=== PATIENT | male | born 1940 | race Hispanic/Latino ===

== ENCOUNTER 2018-01-13 18:49 | Emergency (ER) | payer OTHER ==
[~2018-01-13 18:49] MED LIST: ASPI-1197 PO; CHOL200074 PO; FERR325T22 PO; GABA-531 PO; GLIM4TAB3 PO; LEVO150T11 PO; LOSA25TA16 PO; METF-446 PO; SIMV40TA59 PO; TRAM50TA4 PO
[2018-01-13] MEDS ORDERED: DiphenhydrAMINE HCL 50 MG/ML VIAL ONE (18:52)
[2018-01-13] MEDS ORDERED: METHYLPREDNISOLONE SOD SUCC 125MG/2ML VIAL ONE (18:52)
[2018-01-13] MEDS ORDERED: FAMOTIDINE/PF 20 MG/2 ML VIAL IV ONE (18:52)
[2018-01-13] MEDS ORDERED: ONDANSETRON HCL 4 MG/2 ML VIAL ONE ×3 (19:09→21:45)
[2018-01-13] MEDS ORDERED: HYDROMORPHONE 1 MG/1 ML AMP ONE ×3 (19:10→19:39)
[2018-01-13 19:15] LABS: BASOPHILS % (AUTO) 0.4 % (0.0-5.0); CREATININE 1.9 mg/dL (0.5-1.5); EOSINOPHILS % (AUTO) 0.8 % (0.0-8.0); HEMATOCRIT 38.4 % (42-54); LYMPHOCYTES % (AUTO) 37.1 % (21.0-51.0); MEAN CORPUSCULAR HEMOGLOBIN 29.4 pg (27.0-33.0); MEAN CORPUSCULAR VOLUME 94.9 fL (79-99); MONOCYTES % (AUTO) 3.3 % (3.0-13.0); NEUTROPHILS % (AUTO) 58.4 % (40.0-77.0); NUCLEATED RED BLOOD CELLS 0.1 % (0.0-0.19); PLATELET COUNT (AUTO) 223 K/uL (130-400); POTASSIUM 3.6 mmol/L (3.5-5.1); RED BLOOD CELL COUNT(AUTO) 4.05 MIL/uL (4.50-6.20); RED CELL DISTRIBUTION WIDTH 14.6 % (11.0-15.5)
[2018-01-13 19:39] LABS: ALBUMIN 3.4 g/dL (3.5-5.0); BILIRUBIN,TOTAL 0.5 mg/dL (0.2-1.0); TOTAL PROTEIN, SERUM 7.8 g/dL (6.0-8.3)
[2018-01-13] MEDS ORDERED: NALOXONE HCL 0.4 MG/1 ML ML ONE (19:46)
[2018-01-13] MEDS ORDERED: SODIUM BICARB 50MEQ 50ML VIAL ONE ×2 (19:46→19:55)
[2018-01-13 19:48] LABS: INR > 7.00 (0.85-1.15); PARTIAL THROMBOPLASTIN TIME 104.2 SEC (26.3-35.5); PROTHROMBIN TIME > 63.0 SEC (9.6-11.6)
[2018-01-13 19:54] LABS: ABG BASE EXCESS -16.1 mmol/L (-2.0-3.0); ABG HCO3 11.4 mmol/L (21.0-28.0); ABG OXYGEN SATURATION 90.7 % (95.0-99.0); ABG PCO2 32 mmHg (35-48)
[2018-01-13] MEDS ORDERED: SODIUM CHLORIDE 0.9% 100 ML IV ONE (20:01)
[2018-01-13] MEDS ORDERED: PROMETHAZINE HCL 25 MG/ML 1ML AMPULE IM ONE (22:16)
[2018-01-13] MEDS ORDERED: SODIUM CHLORIDE 0.9% 50 ML IV ONE (22:18)
[2018-01-13 23:29] LABS: ABG BASE EXCESS -13.7 mmol/L (-2.0-3.0); ABG HCO3 13.7 mmol/L (21.0-28.0); ABG OXYGEN SATURATION 93.9 % (95.0-99.0); ABG PCO2 37 mmHg (35-48)
[2018-01-14] MEDS ORDERED: SODIUM BICARB 50MEQ 50ML VIAL ONE (00:11)
[2018-01-14] MEDS ORDERED: SODIUM CHLORIDE 0.9% 1000ML 1,000 ML IV ONE (00:11)
[2018-01-14 00:32] LABS: ALBUMIN 2.9 g/dL (3.5-5.0); BILIRUBIN,TOTAL 1.1 mg/dL (0.2-1.0); POTASSIUM 4.1 mmol/L (3.5-5.1); TOTAL PROTEIN, SERUM 6.9 g/dL (6.0-8.3)
[2018-01-14 00:33] LABS: INR 1.3 (0.85-1.15); PARTIAL THROMBOPLASTIN TIME 78.7 SEC (26.3-35.5); PROTHROMBIN TIME 13.6 SEC (9.6-11.6)
[2018-01-14] MEDS ORDERED: INSULIN HUMULIN R 100 UNIT/ML 3ML ONE (00:38)
[2018-01-14] MEDS ORDERED: DiphenhydrAMINE HCL 50 MG/ML VIAL ONE (00:49)
[2018-01-14] MEDS ORDERED: FAMOTIDINE/PF 20 MG/2 ML VIAL IV ONE (00:50)
[2018-01-14] MEDS ORDERED: IPRATROPIUM/ALBUTEROL SULFATE 3 ML SOLUTION IH ONE (01:02)
== END 2018-01-14 05:03 | disposition home or self-care (01) ==
LOC: EDH 18:49
DX: T63.441A Toxic effect of venom of bees, accidental (unintentional), initial encounter (principal); N17.9 Acute kidney failure, unspecified; E87.2 Acidosis; D68.9 Coagulation defect, unspecified; R73.9 Hyperglycemia, unspecified; I10 Essential (primary) hypertension; Z95.1 Presence of aortocoronary bypass graft; Y92.89 Other specified places as the place of occurrence of the external cause
CPT/HCPCS: 36415 ×2; 36600 ×2; 51702; 71045; 80053 ×2; 82435; 82550; 82803 ×2; 82947; 82948; 83605; 83874; 83930; 83935; 84132; 84295; 84484; 85018; 85025; 85370; 85384; 85610 ×2; 85730 ×2; 93005; 94640; 96365; 96366; 96374; 96375 ×2; 99291; J1170 ×3; J1200 ×2; J1815; J2310; J2405 ×3; J2550; J2930; J3490 ×5; J7030; 96361

== ENCOUNTER → 2018-10-27 | Outpatient (CLI) | payer OTHER, MEDICARE ==
[~2018-10-27] MED LIST changes: -LOSA25TA16 PO; +LOSA25TA41 PO
== END | disposition home or self-care (01) ==
LOC: RAH 14:36
PROVIDERS: ATTEND Internal Medicine
DX: I82.409 Acute embolism and thrombosis of unspecified deep veins of unspecified lower extremity (principal); R60.0 Localized edema
CPT/HCPCS: 93971

== ENCOUNTER 2023-01-20 09:36 | Emergency (ER) | payer MEDICARE, OTHER ==
[~2023-01-20] VITALS: Ht 152.4 cm; Wt 83.0 kg
[~2023-01-20 09:36] MED LIST changes: +CEPH500B PO; -GLIM4TAB3 PO; +GLIM4TAB36 PO
[2023-01-20 10:15] LABS: GLUCOSE POC COMMENT Stat Lab Glu Request
[2023-01-20 10:23] LABS: BASOPHILS # (AUTO) 0.04 K/uL (0.00-0.20); BASOPHILS % (AUTO) 0.3 % (0.0-5.0); EOSINOPHILS # (AUTO) 0.01 K/uL (0.00-0.70); EOSINOPHILS % (AUTO) 0.1 % (0.0-8.0); HEMATOCRIT 29.8 % (42-54); IMMATURE GRANULOCYTE ABSOLUTE 0.07 K/uL (0-1); LYMPHOCYTES # (AUTO) 0.7 K/uL (1.0-4.8); LYMPHOCYTES % (AUTO) 5.2 % (21.0-51.0); MEAN CORPUSCULAR HEMOGLOBIN 29.8 pg (27.0-33.0); MEAN CORPUSCULAR HGB CONC 31.2 g/dL (32.0-36.0); MEAN CORPUSCULAR VOLUME 95.5 fL (79-99); MONOCYTES # (AUTO) 0.8 K/uL (0.1-1.0); MONOCYTES % (AUTO) 6.1 % (3.0-13.0); NEUTROPHILS # (AUTO) 11.8 K/uL (1.8-7.7); NEUTROPHILS % (AUTO) 87.8 % (40.0-77.0); PLATELET COUNT (AUTO) 183 K/uL (130-400); RED BLOOD CELL COUNT(AUTO) 3.12 MIL/uL (4.50-6.20); RED CELL DISTRIBUTION WIDTH 14.2 % (11.0-15.5); WHITE BLOOD COUNT (AUTO) 13.5 K/uL (4.8-10.8)
[2023-01-20 10:42] LABS: B-TYPE NATRIURETIC PEPTIDE 921 pg/mL (0-100)
[2023-01-20 10:43] LABS: ALBUMIN 2.9 g/dL (3.5-5.0); BILIRUBIN,TOTAL 0.6 mg/dL (0.2-1.0); CREATININE 3.9 mg/dL (0.5-1.5); POTASSIUM 4.5 mmol/L (3.5-5.1); TOTAL PROTEIN, SERUM 7.4 g/dL (6.0-8.3)
[2023-01-20] MEDS ORDERED: ACETAMINOPHEN 500 MG TABLET ONE (13:45)
[2023-01-20] MEDS ORDERED: ACETAMINOPHEN 500 MG TABLET PO ONE (14:00)
[2023-01-20] MEDS ORDERED: INSULIN HUMULIN R 100 UNIT/ML 3ML IV ONE (14:00)
[2023-01-20 15:42] VITALS: BP 166/85; PULSE 86; RESP 18; O2SAT 96
[2023-01-20] MEDS ORDERED: ACET160S2 PO (16:07)
== END 2023-01-20 16:15 | disposition home or self-care (01) ==
LOC: EDH 09:36
DX: S39.011A Strain of muscle, fascia and tendon of abdomen, initial encounter (principal); E11.65 Type 2 diabetes mellitus with hyperglycemia; I12.9 Hypertensive chronic kidney disease with stage 1 through stage 4 chronic kidney disease, or unspecified chronic kidney disease; E11.22 Type 2 diabetes mellitus with diabetic chronic kidney disease; N18.9 Chronic kidney disease, unspecified; E78.00 Pure hypercholesterolemia, unspecified; I48.91 Unspecified atrial fibrillation; Z79.82 Long term (current) use of aspirin; Z79.84 Long term (current) use of oral hypoglycemic drugs; Z79.890 Hormone replacement therapy; Z79.899 Other long term (current) drug therapy; X58.XXXA Exposure to other specified factors, initial encounter; Y93.89 Activity, other specified; Y92.89 Other specified places as the place of occurrence of the external cause; Y99.8 Other external cause status
CPT/HCPCS: 99285; 96374; 71045; 82550; 83874; 84484; 80053; 83880; 85025; 82948 ×4; 36415; 93005; J1815

== ENCOUNTER 2023-06-08 18:59 | Emergency (ER) | payer OTHER ==
[~2023-06-08] VITALS: Ht 172.7 cm; Wt 71.7 kg
[~2023-06-08 18:59] MED LIST changes: +ACET160S2 PO
[2023-06-08 19:28] VITALS: O2SAT 99
[2023-06-08 19:30] VITALS: BP 148/85; PULSE 88; RESP 18
[2023-06-08 20:20] LABS: BASOPHILS # (AUTO) 0.07 K/uL (0.00-0.20); EOSINOPHILS # (AUTO) 0.15 K/uL (0.00-0.70); EOSINOPHILS % (AUTO) 2.2 % (0.0-8.0); HEMATOCRIT 29.3 % (42-54); IMMATURE GRANULOCYTE ABSOLUTE 0.02 K/uL (0-1); LYMPHOCYTES # (AUTO) 1.2 K/uL (1.0-4.8); LYMPHOCYTES % (AUTO) 18.1 % (21.0-51.0); MEAN CORPUSCULAR HEMOGLOBIN 29.6 pg (27.0-33.0); MEAN CORPUSCULAR HGB CONC 30.7 g/dL (32.0-36.0); MEAN CORPUSCULAR VOLUME 96.4 fL (79-99); MONOCYTES # (AUTO) 0.6 K/uL (0.1-1.0); MONOCYTES % (AUTO) 9.4 % (3.0-13.0); NEUTROPHILS # (AUTO) 4.7 K/uL (1.8-7.7); PLATELET COUNT (AUTO) 174 K/uL (130-400); RED BLOOD CELL COUNT(AUTO) 3.04 MIL/uL (4.50-6.20); RED CELL DISTRIBUTION WIDTH 13.8 % (11.0-15.5); WHITE BLOOD COUNT (AUTO) 6.8 K/uL (4.8-10.8)
[2023-06-08 20:25] LABS: INR 3.39 (0.85-1.15)
[2023-06-08 20:26] LABS: PARTIAL THROMBOPLASTIN TIME 44.1 SEC (26.3-35.5)
[2023-06-08 20:34] LABS: PROTHROMBIN TIME 36.3 SEC (9.6-11.6)
[2023-06-08] MEDS: DiphenhydrAMINE HCL 50 MG/ML VIAL IV ONE (20:35)
[2023-06-08] MEDS: KETOROLAC 30MG VIAL (30MG/ML) IVP ONE (20:36)
[2023-06-08 20:51] LABS: ALBUMIN 2.8 g/dL (3.5-5.0); BILIRUBIN,TOTAL 0.4 mg/dL (0.2-1.0); CREATININE 3.2 mg/dL (0.5-1.5); POTASSIUM 5.4 mmol/L (3.5-5.1); TOTAL PROTEIN, SERUM 6.7 g/dL (6.0-8.3)
[2023-06-08] MEDS ORDERED: VALA10002 PO (21:50)
[2023-06-08] MEDS ORDERED: GABA300S3 PO (21:50)
== END 2023-06-08 22:02 | disposition home or self-care (01) ==
LOC: EDH 18:59
DX: B02.9 Zoster without complications (principal); D64.9 Anemia, unspecified; I10 Essential (primary) hypertension; E03.9 Hypothyroidism, unspecified; R17 Unspecified jaundice; Z79.82 Long term (current) use of aspirin; Z79.84 Long term (current) use of oral hypoglycemic drugs; Z79.899 Other long term (current) drug therapy; Z98.890 Other specified postprocedural states
CPT/HCPCS: 99285; 96374; 71045; 96375; 84484; 80053; 85025; 85610; 85730; 36415; 93005; J1200; J1885

== ENCOUNTER 2023-12-11 03:50 | Inpatient (IN) | payer OTHER ==
[2023-12-11] VITALS (20 sets, daily range): BP systolic 89–136; BP diastolic 55–77; PULSE 70–94; RESP 16–20; TEMP 96.7–98.1; O2SAT 97–100
[~2023-12-11] VITALS: Ht 172.7 cm; Wt 62.6 kg
[~2023-12-11 03:50] MED LIST changes: +ACET-66 PO; -ACET160S2 PO; -ASPI-1197 PO; -CEPH500B PO; -CHOL200074 PO; -FERR325T22 PO; +GABA-529 GT; -GABA-531 PO; +GENT30OI2 TP; -GLIM4TAB36 PO; +HYDR-4060 PO; +INSLAN SQ; +LEVO150C4 PO; -LEVO150T11 PO; -LOSA25TA41 PO; -METF-446 PO; +METO25TA6 GT; +NEUTPW PO; +PANT40GR PO; -TRAM50TA4 PO; +VITA1CAP GT
[2023-12-11] MEDS ORDERED: doCUSate SODIUM 100 MG CAP PO PRN (11:30)
[2023-12-11] MEDS ORDERED: acetaMINOPHEN 325 MG TAB PO PRN (11:30)
[2023-12-11] MEDS ORDERED: ARTIFICAL TEARS SOL 15 ML OP PRN (11:30)
[2023-12-11] MEDS ORDERED: DiphenhydrAMINE HCL 25 MG CAPSULE PO PRN (11:30)
[2023-12-11] MEDS ORDERED: NITROGLYCERIN 0.4 MG SL TAB SL PRN (11:30)
[2023-12-11] MEDS ORDERED: ONDANSETRON 4MG INJ IV PRN (11:30)
[2023-12-11] MEDS ORDERED: hydrALAZine 25MG TABLET PO PRN (11:30)
[2023-12-11] MEDS ORDERED: polyETHYLene GLYCol 3350 17 GM POWD.PACK PO PRN (11:30)
[2023-12-11] MEDS ORDERED: guaiFENesin SUGAR-FREE 100 MG/5 ML UDCUP PO PRN (11:30)
[2023-12-11 12:12] LABS: HEMATOCRIT 26.4 % (42-54); MEAN CORPUSCULAR HEMOGLOBIN 31.8 pg (27.0-33.0); MEAN CORPUSCULAR HGB CONC 30.7 g/dL (32.0-36.0); MEAN CORPUSCULAR VOLUME 103.5 fL (79-99); PLATELET COUNT (AUTO) 444 K/uL (130-400); RED BLOOD CELL COUNT(AUTO) 2.55 MIL/uL (4.50-6.20); RED CELL DISTRIBUTION WIDTH 23.6 % (11.0-15.5); WHITE BLOOD COUNT (AUTO) 9.9 K/uL (4.8-10.8)
[2023-12-11 12:26] LABS: INR 1.03 (0.85-1.15); PROTHROMBIN TIME 11.1 SEC (9.6-11.6)
[2023-12-11 12:27] LABS: PARTIAL THROMBOPLASTIN TIME 31.4 SEC (26.3-35.5)
[2023-12-11 12:42] LABS: CREATININE 3.4 mg/dL (0.5-1.3); POTASSIUM 3.7 mmol/L (3.5-5.1)
[2023-12-11] MEDS: 0.9%NACL 1000ML 1,000 ML IV SCH (14:33)
[2023-12-11] MEDS: ALBUMIN (HUMAN) 25% 50 ML IV.SOLN. IV SCH (15:00)
[2023-12-11] MEDS ORDERED: LACE ASSESSMENT (SCORE > 11) MISC SCH (16:30)
[2023-12-11] MEDS: HEParin 5,000 UNIT VIAL IRRIG SCH (17:12)
[2023-12-11] MEDS: GABApentin 100 MG CAPSULE PO SCH (21:12)
[2023-12-11] MEDS: metoPROLOL tartRATE 25 MG TAB PO SCH (21:12)
[2023-12-11] MEDS: simVASTatin 20 MG TABLET PO SCH (21:12)
[2023-12-11] MEDS: miDODRine HCL 5 MG TABLET PO SCH (21:13)
[2023-12-11] MEDS: FAMOTIDINE 20MG TAB PO SCH (21:13)
[2023-12-11] MEDS: GENTAmicin 15 GM CREAM TP SCH (21:17)
[2023-12-12] VITALS (9 sets, daily range): BP systolic 114–146; BP diastolic 48–80; PULSE 55–88; RESP 16–20; TEMP 96.7–98.7; O2SAT 95–99
[2023-12-12 04:14] LABS: BASOPHILS # (AUTO) 0.14 K/uL (0.00-0.20); BASOPHILS % (AUTO) 1.5 % (0.0-5.0); EOSINOPHILS # (AUTO) 0.23 K/uL (0.00-0.70); EOSINOPHILS % (AUTO) 2.5 % (0.0-8.0); HEMATOCRIT 25.4 % (42-54); IMMATURE GRANULOCYTE ABSOLUTE 0.03 K/uL (0-1); LYMPHOCYTES # (AUTO) 2.5 K/uL (1.0-4.8); LYMPHOCYTES % (AUTO) 26.6 % (21.0-51.0); MEAN CORPUSCULAR HGB CONC 31.1 g/dL (32.0-36.0); MEAN CORPUSCULAR VOLUME 102.8 fL (79-99); MONOCYTES # (AUTO) 0.7 K/uL (0.1-1.0); MONOCYTES % (AUTO) 7.8 % (3.0-13.0); NEUTROPHILS # (AUTO) 5.7 K/uL (1.8-7.7); NEUTROPHILS % (AUTO) 61.3 % (40.0-77.0); PLATELET COUNT (AUTO) 386 K/uL (130-400); RED BLOOD CELL COUNT(AUTO) 2.47 MIL/uL (4.50-6.20); RED CELL DISTRIBUTION WIDTH 22.9 % (11.0-15.5); WHITE BLOOD COUNT (AUTO) 9.3 K/uL (4.8-10.8)
[2023-12-12 04:44] LABS: B-TYPE NATRIURETIC PEPTIDE 624 pg/mL (0-100)
[2023-12-12 04:49] LABS: ALBUMIN 2.3 g/dL (3.5-5.0); BILIRUBIN,TOTAL 0.7 mg/dL (0.2-1.0); CREATININE 2.1 mg/dL (0.5-1.3); MAGNESIUM 1.9 mg/dL (1.80-2.40); POTASSIUM 3.7 mmol/L (3.5-5.1); TOTAL PROTEIN, SERUM 7.4 g/dL (6.0-8.3)
[2023-12-12] MEDS: levoTHYROxine 150 MCG TABLET PO SCH (05:50)
[2023-12-12] MEDS ORDERED: NON-FORMULARY MEDICATION 1 EACH (Simvastatin (Zocor) 40 MG) PO SCH (09:00)
[2023-12-12] MEDS ORDERED: NON-FORMULARY MEDICATION 1 EACH (Pantoprazole Sodium 40 MG) PO SCH (09:00)
[2023-12-12] MEDS: PANTOPRAZOLE 40 MG TAB DR PO SCH (10:26)
[2023-12-12] MEDS: NEUtra-PHOS PACKET 1 EACH PO SCH (10:27)
[2023-12-12] MEDS: HONEY 1 APPL/ML TUBE TP SCH (10:27)
[2023-12-12 12:36] LABS: HEPATITIS B CORE AB TOTAL Reactive (Nonreactive)
[2023-12-13] VITALS (42 sets, daily range): BP systolic 84–139; BP diastolic 40–78; PULSE 63–90; RESP 12–22; TEMP 95.8–98.1; O2SAT 92–98
[2023-12-13 04:19] LABS: BASOPHILS # (AUTO) 0.15 K/uL (0.00-0.20); BASOPHILS % (AUTO) 1.4 % (0.0-5.0); EOSINOPHILS # (AUTO) 0.22 K/uL (0.00-0.70); HEMATOCRIT 27.3 % (42-54); IMMATURE GRANULOCYTE ABSOLUTE 0.02 K/uL (0-1); LYMPHOCYTES % (AUTO) 27.4 % (21.0-51.0); MEAN CORPUSCULAR HEMOGLOBIN 32.2 pg (27.0-33.0); MEAN CORPUSCULAR HGB CONC 30.8 g/dL (32.0-36.0); MEAN CORPUSCULAR VOLUME 104.6 fL (79-99); MONOCYTES # (AUTO) 0.9 K/uL (0.1-1.0); MONOCYTES % (AUTO) 8.4 % (3.0-13.0); NEUTROPHILS # (AUTO) 6.6 K/uL (1.8-7.7); NEUTROPHILS % (AUTO) 60.6 % (40.0-77.0); PLATELET COUNT (AUTO) 456 K/uL (130-400); RED BLOOD CELL COUNT(AUTO) 2.61 MIL/uL (4.50-6.20); RED CELL DISTRIBUTION WIDTH 22.2 % (11.0-15.5); WHITE BLOOD COUNT (AUTO) 10.9 K/uL (4.8-10.8)
[2023-12-13 04:32] LABS: INR 1.07 (0.85-1.15); PROTHROMBIN TIME 11.5 SEC (9.6-11.6)
[2023-12-13 04:33] LABS: PARTIAL THROMBOPLASTIN TIME 34.2 SEC (26.3-35.5)
[2023-12-13 04:41] LABS: ALBUMIN 2.3 g/dL (3.5-5.0); BILIRUBIN,DIRECT 0.2 mg/dL (0.0-0.3); BILIRUBIN,TOTAL 0.6 mg/dL (0.2-1.0); POTASSIUM 3.9 mmol/L (3.5-5.1); TOTAL PROTEIN, SERUM 7.7 g/dL (6.0-8.3)
[2023-12-13] MEDS ORDERED: MIDAZOLAM HCL 1 MG/ML 2ML VIAL ONE (07:22)
[2023-12-13] MEDS ORDERED: rocuRONium bROMide 10MG/1ML 5ML VL ONE (07:22)
[2023-12-13] MEDS ORDERED: FENTanyl CITRate PF 50 MCG/1 ML 2ML VIAL ONE (07:23)
[2023-12-13] MEDS ORDERED: proPOFol 10 MG/ML 20ML VIAL IV ONE (07:23)
[2023-12-13] MEDS ORDERED: ONDANSETRON 4MG INJ ONE ×2 (07:31→09:32)
[2023-12-13] MEDS ORDERED: BUPIvacaine/PF 0.25% 30ML VIAL IJ ONE (08:51)
[2023-12-13] MEDS ORDERED: PHENYLEPHRINE HCL 10 MG/ML 1ML VIAL IV ONE (08:55)
[2023-12-13] MEDS: FERROUS SULFATE 325 MG TABLET.DR PO SCH (09:00)
[2023-12-13] MEDS ORDERED: VASOpressin 20 UNITS/ML 1ML VIAL ONE (09:19)
[2023-12-13] MEDS: 0.9% NACL 250ML 250 ML IV SCH (09:34)
[2023-12-13] MEDS: ALBUMIN (HUMAN) 25% 50 ML IV.SOLN. IV STA (14:16)
[2023-12-14] VITALS (13 sets, daily range): BP systolic 111–141; BP diastolic 38–71; PULSE 72–102; RESP 16–20; TEMP 96.8–98.6; O2SAT 95–100
[2023-12-14 03:28] LABS: BASOPHILS # (AUTO) 0.11 K/uL (0.00-0.20); EOSINOPHILS # (AUTO) 0.15 K/uL (0.00-0.70); EOSINOPHILS % (AUTO) 1.4 % (0.0-8.0); HEMATOCRIT 26.4 % (42-54); IMMATURE GRANULOCYTE ABSOLUTE 0.03 K/uL (0-1); LYMPHOCYTES % (AUTO) 18.2 % (21.0-51.0); MEAN CORPUSCULAR HEMOGLOBIN 32.3 pg (27.0-33.0); MEAN CORPUSCULAR HGB CONC 31.1 g/dL (32.0-36.0); MEAN CORPUSCULAR VOLUME 103.9 fL (79-99); MONOCYTES # (AUTO) 0.6 K/uL (0.1-1.0); MONOCYTES % (AUTO) 5.4 % (3.0-13.0); NEUTROPHILS # (AUTO) 8.2 K/uL (1.8-7.7); NEUTROPHILS % (AUTO) 73.7 % (40.0-77.0); PLATELET COUNT (AUTO) 333 K/uL (130-400); RED BLOOD CELL COUNT(AUTO) 2.54 MIL/uL (4.50-6.20); RED CELL DISTRIBUTION WIDTH 21.5 % (11.0-15.5); WHITE BLOOD COUNT (AUTO) 11.1 K/uL (4.8-10.8)
[2023-12-14 03:56] LABS: ALBUMIN 2.5 g/dL (3.5-5.0); BILIRUBIN,TOTAL 0.7 mg/dL (0.2-1.0); POTASSIUM 3.6 mmol/L (3.5-5.1); TOTAL PROTEIN, SERUM 7.6 g/dL (6.0-8.3)
[2023-12-14 04:15] LABS: BILIRUBIN,DIRECT 0.2 mg/dL (0.0-0.3)
[2023-12-14] MEDS: IpraTROPium 0.5 MG/2.5 ML INH IH SCH (11:24)
[2023-12-14] MEDS: SODIUM CHLORIDE 3% FOR INHALATION 4 ML/AMP VIAL.NEB IH ONE ×3 (11:25→23:16)
[2023-12-14] MEDS: DEXTROSE 50%-WATER 50 ML DISP.SYRIN IV PRN (12:29)
[2023-12-14] MEDS ORDERED: GLUCAGON 1MG KIT 1 MG ML IM PRN (12:30)
[2023-12-14] MEDS: acetaMINOPHEN 325 MG TAB PO PRN (18:02)
[2023-12-14] MEDS: guaiFENesin-DM 200/20MG 10ML PO PRN (18:02)
[2023-12-15] VITALS (12 sets, daily range): BP systolic 107–121; BP diastolic 49–61; PULSE 62–89; RESP 16–20; TEMP 97.5–98.6; O2SAT 96–99
[2023-12-15] MEDS: INSULIN humuLIN R 100 UNIT/ML 3ML SQ SCH (21:23)
[2023-12-15] MEDS: INSULIN GLARgine 100 UNITS/ML 10 ML VIAL SQ SCH (21:23)
[2023-12-16] VITALS (30 sets, daily range): BP systolic 86–137; BP diastolic 44–96; PULSE 65–91; RESP 14–20; TEMP 97–98.4; O2SAT 100
[2023-12-16 03:56] LABS: HEMATOCRIT 27.1 % (42-54); MEAN CORPUSCULAR HEMOGLOBIN 32.3 pg (27.0-33.0); MEAN CORPUSCULAR VOLUME 104.2 fL (79-99); RED BLOOD CELL COUNT(AUTO) 2.6 MIL/uL (4.50-6.20); RED CELL DISTRIBUTION WIDTH 20.4 % (11.0-15.5); WHITE BLOOD COUNT (AUTO) 12.1 K/uL (4.8-10.8)
[2023-12-16 04:05] LABS: CREATININE 3.4 mg/dL (0.5-1.3); MAGNESIUM 2.1 mg/dL (1.80-2.40); POTASSIUM 3.7 mmol/L (3.5-5.1)
[2023-12-16] MEDS ORDERED: VANCOMYCIN PROTOCOL PER PHARMACY IV PRN (10:00)
[2023-12-16] MEDS: 0.9%NACL 1000ML 1,000 ML IV SCH (10:30)
[2023-12-16] MEDS ORDERED: 0.9% NACL 250ML 250 ML IV SCH (10:30)
[2023-12-16] MEDS: ALBUMIN (HUMAN) 25% 50 ML IV.SOLN. IV SCH (11:10)
[2023-12-16] MEDS: HEParin 5,000 UNIT VIAL IRRIG SCH (14:04)
[2023-12-16] MEDS: ceFEPime HCL 1 GM VIAL IVPB SCH (14:45)
[2023-12-16] MEDS: VANCOMYCIN 1.25 GM/250 ML BAG 250 ML IV ONE (14:46)
[2023-12-16 15:12] LABS: HEPATITIS C ANTIBODY Non-Reactive (Nonreactive)
[2023-12-16 15:27] LABS: HEPATITIS B SURFACE ANTIBODY Negative (Reactive); HEPATITIS B SURFACE ANTIGEN Non-Reactive (Nonreactive)
[2023-12-16 15:55] LABS: HEMOGLOBIN A1C 5.2 % (4.0-6.0)
[2023-12-16 16:24] LABS: CHOLESTEROL 102 mg/dL (<200); HDL CHOLESTEROL 40 mg/dL (29-71); LDL DIRECT 55 mg/dL (0-99); TRIGLYCERIDES 52 mg/dL (30-200)
[2023-12-16] MEDS: IpraTROPium 0.5 MG/2.5 ML INH IH SCH (22:00)
[2023-12-16] MEDS: acetylCYSTeine10% 4ML VIAL IH SCH (23:35)
[2023-12-17] VITALS (10 sets, daily range): BP systolic 95–138; BP diastolic 44–60; PULSE 69–89; RESP 17–18; TEMP 97.1–98.2; O2SAT 98–100
[2023-12-17] MEDS: BUDESONIDE 0.5 MG/2 ML INH IH SCH (11:14)
[2023-12-18] MEDS ORDERED: VANCOMYCIN 500MG+NS 100ML 100 ML IV SCH (16:00)
== END 2023-12-17 20:06 | DRG 640 ==
LOC: INTOOBSV 08:17 → OBSVTOIN 08:17 → 4BH 08:17
PROVIDERS: ADMIT Internal Medicine; ATTEND Internal Medicine
PROC: 5A1D70Z Performance of Urinary Filtration, Intermittent, Less than 6 Hours Per Day (ICD-10-PCS; 2023-12-11)
PROC: 5A1D70Z Performance of Urinary Filtration, Intermittent, Less than 6 Hours Per Day (ICD-10-PCS; 2023-12-13)
PROC: 0DH63UZ Insertion of Feeding Device into Stomach, Percutaneous Approach (ICD-10-PCS; principal; 2023-12-13 09:03)
PROC: 5A1D70Z Performance of Urinary Filtration, Intermittent, Less than 6 Hours Per Day (ICD-10-PCS; 2023-12-16)
DX: E86.0 Dehydration (principal); J18.9 Pneumonia, unspecified organism; L89.613 Pressure ulcer of right heel, stage 3; N18.6 End stage renal disease; L97.429 Non-pressure chronic ulcer of left heel and midfoot with unspecified severity; L97.419 Non-pressure chronic ulcer of right heel and midfoot with unspecified severity; E44.1 Mild protein-calorie malnutrition; I50.32 Chronic diastolic (congestive) heart failure; I13.2 Hypertensive heart and chronic kidney disease with heart failure and with stage 5 chronic kidney disease, or end stage renal disease; R64 Cachexia; R62.7 Adult failure to thrive; F03.90 Unspecified dementia, unspecified severity, without behavioral disturbance, psychotic disturbance, mood disturbance, and anxiety; I48.0 Paroxysmal atrial fibrillation; E11.22 Type 2 diabetes mellitus with diabetic chronic kidney disease; D63.1 Anemia in chronic kidney disease; E11.51 Type 2 diabetes mellitus with diabetic peripheral angiopathy without gangrene; E11.42 Type 2 diabetes mellitus with diabetic polyneuropathy; Z66 Do not resuscitate; L89.620 Pressure ulcer of left heel, unstageable; E11.621 Type 2 diabetes mellitus with foot ulcer; L97.519 Non-pressure chronic ulcer of other part of right foot with unspecified severity; L97.529 Non-pressure chronic ulcer of other part of left foot with unspecified severity; E78.5 Hyperlipidemia, unspecified; I25.10 Atherosclerotic heart disease of native coronary artery without angina pectoris; L89.320 Pressure ulcer of left buttock, unstageable; E03.9 Hypothyroidism, unspecified; Z99.2 Dependence on renal dialysis; Z86.73 Personal history of transient ischemic attack (TIA), and cerebral infarction without residual deficits; Z95.1 Presence of aortocoronary bypass graft; Z68.21 Body mass index [BMI] 21.0-21.9, adult
CPT/HCPCS: 36415; 43246; 71045; 71250; 73630; 80048; 80053; 80061; 80076; 82140; 82306; 82533; 82607; 82948; 83036; 83735; 83880; 84145; 84443; 85025; 85027; 85610; 85730; 86704; 86706; 86803; 86850; 86900; 86901; 87340; 90935; 93306; 93925; 94640; 94664; 94667; 94668; G0378; J0692; J1644; J2250; J2371; J2405; J2704; J3010; J3490; J7070; J7608; P9047; 3370; A4216; A4222; A4223; A4452; A4600; A4649; A4930; J0665